=== PATIENT | male | born 1970 ===

== ENCOUNTER → 2018-04-19 21:06 | Outpatient (REF) | payer OTHER, SELFPAY ==
[2018-04-19 21:08] LABS: Bacteria Urine None Seen; RBC Urine None Seen (0-5/HPF); WBC Urine None Seen (0-5/HPF)
[2018-04-20 01:21] LABS: Alanine Aminotransferase 48 IU/L (21-72); Albumin 4.6 g/dL (3.5-5.0); Albumin Globulin Ratio 1.5 (1.0-2.8); Alkaline Phosphatase 70 U/L (38-126); Aspartate Aminotransferase 31 IU/L (17-59); BUN Creatinine Ratio 16.4 (6-22); Bilirubin Total 0.7 mg/dL (0.2-1.3); Blood Urea Nitrogen 18 mg/dL (9-20); Carbon Dioxide 28 mmol/L (22-32); Chloride 102 mmol/L (98-107); Cholesterol 225 mg/dL (140-199); Estimated Glomerular Filt Rate > 60.0 mL/min (>60); Globulin 3.1 g/dL (1.7-4.1); Glucose 88 mg/dL (70-100); HDL Cholesterol 53 mg/dL (40-60); HEMOLYSIS < 15 (0-50); LDL Cholesterol Calculated 147 mg/dL (<100); Potassium 4.2 mmol/L (3.4-5.1); Sodium 142 mmol/L (137-145); Total Protein 7.7 g/dL (6.3-8.2); Triglycerides 123 mg/dL (35-150)
[2018-04-20 01:29] LABS: Bilirubin Urine UA NEGATIVE (NEGATIVE); Color Urine UA YELLOW; Glucose Urine UA NEGATIVE (Normal); Ketones Urine UA NEGATIVE (NEGATIVE); Leukocyte Esterase Urine UA NEGATIVE (NEGATIVE); Nitrite Urine UA NEGATIVE (Negative); Occult Blood Urine UA NEGATIVE (Negative); Protein Urine UA NEGATIVE (Negative); Specific Gravity Urine UA >=1.030 (1.000-1.035); Urobilinogen Urine UA 0.2 E.U./dL (0.2)
[2018-04-20 01:32] LABS: Appearance Urine UA CLOUDY
[2018-04-20 03:57] LABS: Squamous Epithelial Cell Urine 0-1 /HPF
[2018-04-20 03:58] LABS: Amorphous Sediment Urine 4+; Culture Indicated Urine Cult Not Indicated
[2018-04-20 07:32] LABS: Free T4, Direct Thyroxine 1.05 ng/dL (0.78-2.19)
[2018-04-20 07:46] LABS: Thyroid Stimulating Hormone 1.08 uIU/mL (0.47-4.68)
[2018-04-21 14:36] LABS: Dehydroepiandrosterone Sulfate 193 mcg/dL (70-495)
[2018-04-21 14:42] LABS: PSA Total 0.66 ng/mL (< 4.01)
[2018-04-21 15:06] LABS: Estradiol 23 pg/mL (< 40)
[2018-04-24 09:24] LABS: Testosterone Total 251 ng/dL (250-1100)
== END ==
LOC: LAB 21:06
PROVIDERS: Visit Provider Family Medicine
DX: Z00.00 Encounter for general adult medical examination without abnormal findings (principal); E29.1 Testicular hypofunction
CPT/HCPCS: 36415; 80053; 80061; 81001; 82627; 82670; 82728; 84153; 84154; 84402; 84403; 84439; 84443; 85025